=== PATIENT | female | born 1990 | race Caucasian/White ===

== ENCOUNTER 2024-11-06 00:13 | Inpatient (IN) | payer MEDICAID ==
[2024-11-06] MEDS ORDERED: Metoclopramide HCl 10 MG (2 mL) VIAL ONE (00:48)
[2024-11-06] MEDS ORDERED: Acetaminophen 500 MG TAB ONE (00:48)
[2024-11-06] MEDS ORDERED: diphenhydrAMINE 50 MG/ML VIAL ONE (00:48)
[2024-11-06 08:06] VITALS: BMI 25.9
[2024-11-06] MEDS ORDERED: Ondansetron PF 4 MG/2 ML Vial ONE ×2 (09:03→16:50)
[2024-11-06] MEDS ORDERED: Mag-Al 1200 mg/1200 mg/30 ML UDCUP PO PRN (10:41)
[2024-11-06] MEDS ORDERED: Dextrose 50% Abboject 50 ML SYRINGE SLOW IVP PRN (10:41)
[2024-11-06] MEDS ORDERED: Glucagon 1 MG/ML KIT IM PRN (10:41)
[2024-11-06] MEDS ORDERED: Calcium Carbonate 500 MG ChewTAB PO PRN (10:41)
[2024-11-06] MEDS: Ketorolac Tromethamine 30 MG (1 mL) VIAL IVP SCH (11:11)
[2024-11-06] MEDS: D5 1/2 NS w/20 mEq KCL 1,000 ML IV SCH (11:25)
[2024-11-06] MEDS: Ondansetron PF 4 MG/2 ML Vial IVP PRN (13:56)
[2024-11-06] MEDS ORDERED: Rocuronium Bromide 10 MG/ML (10ML VIAL) ONE (16:35)
[2024-11-06] MEDS ORDERED: PROPOFOL 20 ML ONE ×2 (16:35→17:21)
[2024-11-06] MEDS ORDERED: Bupivacaine HCl 0.5%/Epinephrine 1:200,000/PF 30 ml Vial ONE (16:43)
[2024-11-06] MEDS ORDERED: Iopamidol 0 ML ONE (16:43)
[2024-11-06] MEDS ORDERED: SUGAMMADEX SODIUM 200 MG/2 ML VIAL ONE (16:50)
[2024-11-06] MEDS ORDERED: SUCCINYLCHOLINE/SOD CL,ISO/PF 200 MG/10 ML SYRINGE FS ONE (16:50)
[2024-11-06] MEDS ORDERED: Glucagon 1 MG/ML KIT ONE (18:08)
[2024-11-06] MEDS: HYDROcodone/Acetaminophen 10/325 mg Tablet PO PRN (23:26)
[2024-11-07 05:57] LABS: ALT (SGPT) 268 U/L (Less than 34); AST (SGOT) 143 U/L (11-34); Albumin 3.1 g/dL (3.1-4.5); Alkaline Phosphatase 99 U/L (40-110); Bilirubin, Direct 5.1 mg/dL (0.1-0.3); Bilirubin, Total 6.6 mg/dL (0.3-1.2)
[2024-11-07 16:05] VITALS: BP 110/64; TEMP 98.8
== END 2024-11-07 18:20 | disposition short-term general hospital (02) | DRG 419 ==
LOC: CSHERS 00:13 → CSHERHOLD 02:35 → CSHPP 10:47
PROVIDERS: ADMIT Surgery; ATTEND Surgery
PROC: 0FT44ZZ Resection of Gallbladder, Percutaneous Endoscopic Approach (ICD-10-PCS; principal; 2024-11-06)
PROC: BF141ZZ Fluoroscopy of Gallbladder, Bile Ducts and Pancreatic Ducts using Low Osmolar Contrast (ICD-10-PCS; 2024-11-06)
PROC: 3E03329 Introduction of Other Anti-infective into Peripheral Vein, Percutaneous Approach (ICD-10-PCS; 2024-11-06)
DX: K81.0 Acute cholecystitis (principal); Z79.899 Other long term (current) drug therapy
CPT/HCPCS: 36415; 47532; 76705; 76801; 76856; 80076; 88304; 94760; 96374; 96375; 96376; A4649; J1100; J1200; J1611; J2270; J2272; J2405; J2543; J2550; J2704; J2765; J3010; J3480; Q9967